=== PATIENT | male | born 1970 | race Two or more races ===

== ENCOUNTER 2021-01-20 17:52 | Emergency (ER) | payer OTHER ==
[2021-01-20] MEDS ORDERED: KETOROLAC 15 MG/ML 1 ML VIAL IM STA (17:55)
[2021-01-20] MEDS ORDERED: SODIUM CHLORIDE 0.9% 500 ML 500 ML IV STA (18:00)
[2021-01-20] MEDS ORDERED: KETOROLAC 15 MG/ML 1 ML VIAL IVP STA (18:00)
[2021-01-20 18:08] VITALS: RESP 18
--- NOTE | 2021-01-20 19:41 | ED ---
General Adult HPI - General Source: patient, RN notes reviewed, old records reviewed Mode of arrival: EMS Limitations: no limitations <Emir Oliveira - Last Filed: 01/20/21 20:50> <Kevin Aguilera - Last Filed: 01/21/21 00:32> - General Chief complaint: Psychiatric Symptoms Stated complaint: Mental Health Time Seen by Provider: 01/20/21 18:05 - History of Present Illness Initial comments: This is a 50-year-old male who presents emergency Department because he's been depressed lately and having thoughts of he doesn't want to live anymore. Patient states she has no plan and doesn't believe he'll harm himself in the near future but states lately because of his chronic pain he has been much more depressed. Patient states he mentioned this to his primary medical care doctor and he was brought in by EMS because she called EMS at that time. Patient denies any alcohol or drug use. Patient denies any new problems physically. Patient states she's had no fever chills or cough no chest pain difficult breathing shortest breath per patient denies any abdominal pain patient has nausea vomiting diarrhea. Patient states she has chronic back pain and right knee pain. Patient states she has a job that entails quite a bit of physicality and this causes quite a bit of pain. Patient does have 3 children. (Emir Oliveira) - Related Data Home Medications Medication Instructions Recorded Confirmed gemfibroziL [Lopid] 600 mg PO BID 05/15/14 01/20/21 Ergocalciferol (Vitamin D2) 1,250 mcg PO DIRECTED 01/20/21 01/20/21 [Drisdol (50,000 Iu)] Escitalopram [Lexapro] 10 mg PO DAILY 01/20/21 01/20/21 HYDROcodone/APAP 10-325MG [[place] 1 tab PO 5XD PRN 01/20/21 01/20/21 10-325] Levothyroxine Sodium [Synthroid] 25 mcg PO DAILY 01/20/21 01/20/21 Mirtazapine 15 mg PO HS PRN 01/20/21 01/20/21 Naproxen 500 mg PO BID PRN 01/20/21 01/20/21 Oxybutynin Chloride 5 mg PO BID 01/20/21 01/20/21 busPIRone HCl [Buspar] 5 mg PO TID 01/20/21 01/20/21 Allergies Allergy/AdvReac Type Severity Reaction Status Date / Time No Known Allergies Allergy Verified 01/20/21 19:14 Review of Systems ROS Other: All systems not noted in ROS Statement are negative. <Emir Oliveira - Last Filed: 01/20/21 20:50> ROS Other: All systems not noted in ROS Statement are negative. <Kevin Aguilera - Last Filed: 01/21/21 00:32> ROS Statement: Those systems with pertinent positive or pertinent negative responses have been documented in the HPI. Past Medical History Past Medical History: Hyperlipidemia Additional Past Medical History / Comment(s): PTSD, arthritis in legs, arms and lower back., hx of head injury 1988 ([facility]- possible concussion., Hx of bleeding from internal hemorrhoids., States currently his WBC level is low. , Wears knee braces for support., [place] left ear. History of Any Multi-Drug Resistant Organisms: None Reported Past Surgical History: Back Surgery, Orthopedic Surgery, Tonsillectomy Additional Past Surgical History / Comment(s): colonoscopy, RIGHT FOOT PLANTAR FASCIITIS, RIGHT ANKLE TORN LIGAMENT, RIGHT KNEE TORN MENISCUS, bACK SURGERY L-3 & L-4 WITH CAGES AND TITANIUM SMILEY. Past Anesthesia/Blood Transfusion Reactions: No Reported Reaction Past Psychological History: PTSD Smoking Status: Never smoker Past Alcohol Use History: Rare Past Drug Use History: None Reported - Past Family History Mother Family Medical History: No Reported History <Emir Oliveira - Last Filed: 01/20/21 20:50> General Exam Limitations: no limitations <Emir Oliveira - Last Filed: 01/20/21 20:50> - General Exam Comments Initial Comments: GENERAL: Patient is well-developed and well-nourished. Patient is nontoxic and well-hyd rated and is in no acute distress. ENT: Neck is soft and supple. No significant lymphadenopathy is noted. Oropharynx is clear. Moist mucous membranes. Neck has full range of motion without elicit ing any pain. EYES: The sclera were anicteric and conjunctiva were pink and moist. Extraocular movements were intact and pupils were equal round and reactive to light. Eyelids were unremarkable. PULMONARY: Unlabored respirations. Good breath sounds bilaterally. No audible rales rhonchi or wheezing was noted. CARDIOVASCULAR: There is a regular rate and rhythm without any murmurs gallops or rubs. ABDOMEN: Soft and nontender with normal bowel sounds. SKIN: Skin is clear with no lesions or rashes and otherwise unremarkable. NEUROLOGIC: Patient is alert and oriented x3. Cranial nerves II through XII are grossly intact. Motor and sensory are also intact. Normal speech, volume and content. Symmetrical smile. MUSCULOSKELETAL: Normal extremities with adequate strength and full range of motion. No lower extremity swelling or edema. No calf tenderness. LYMPHATICS: No significant lymphadenopathy is noted PSYCHIATRIC: Patient states she is depressed and does think about not wanting to live but has no desire to kill himself in the near future (Emir Oliveira) Course Vital Signs 01/20/21 18:03 Temperature 98.9 F Pulse Rate 91 Respiratory 18 Rate Blood Pressure 158/97 O2 Sat by Pulse 98 Oximetry Medical Decision Making <Emir Oliveira - Last Filed: 01/20/21 20:50> - Medical Decision Making EKG shows sinus rhythm at 60 bpm LA interval is 244 QRS 76 QT interval 394 QTC is 418. Patient's EKG shows no ST segment elevation or depression. Dr. Espinoza will be taking over the care of this patient at 9 PM (Emir Oliveira) - Lab Data Lab Results 01/20/21 Range/Units 23:02 Urine Opiates Screen Detected H (NotDetected) Ur Oxycodone Screen Not Detected (NotDetected) Urine Methadone Screen Not Detected (NotDetected) Ur Propoxyphene Screen Not Detected (NotDetected) Ur Barbiturates Screen Not Detected (NotDetected) U Tricyclic Antidepress Not Detected (NotDetected) Ur Phencyclidine Scrn Not Detected (NotDetected) Ur Amphetamines Screen Not Detected (NotDetected) U Methamphetamines Scrn Not Detected (NotDetected) U Benzodiazepines Scrn Not Detected (NotDetected) Urine Cocaine Screen Not Detected (NotDetected) U Marijuana (THC) Screen Not Detected (NotDetected) Disposition <Emir Oliveira - Last Filed: 01/20/21 20:50> Is patient prescribed a controlled substance at d/c from ED?: No <Kevin Aguilera - Last Filed: 01/21/21 00:32> Clinical Impression: Mood disorder Disposition: HOME SELF-CARE Condition: Good Instructions (If sedation given, give patient instructions): Mood Disorders (ED) Referrals: [facility],Clinic [Primary Care Provider] - 1-2 days
[2021-01-20 23:38] LABS: Amphetamine Screen,Urine Not Detected (NotDetected); Barbiturate Screen,Urine Not Detected (NotDetected); Benzodiazepines Screen,Urine Not Detected (NotDetected); Cocaine Screen,Urine Not Detected (NotDetected); Methadone Screen, Urine Not Detected (NotDetected); Opiate Screen,Urine Detected (NotDetected); Oxycodone Screen, Urine Not Detected (NotDetected); Phencyclidine Screen,Urine Not Detected (NotDetected); Tricyclic Antidepressant,Urine Not Detected (NotDetected); Urn Cannabinoid Scrn Not Detected (NotDetected)
[2021-01-21 00:48] VITALS: BP 123/69; PULSE 66; TEMP 97.8
== END 2021-01-21 00:51 | disposition home or self-care (01) ==
LOC: EC 17:52
DX: F32.9 Major depressive disorder, single episode, unspecified (principal); G89.29 Other chronic pain; M54.9 Dorsalgia, unspecified; M25.561 Pain in right knee; E78.5 Hyperlipidemia, unspecified
CPT/HCPCS: 82075; 80306; 99284; 96372; J1885